=== PATIENT | male | born 1950 | race Caucasian/White ===

== ENCOUNTER 2018-01-21 12:23 | Inpatient (IN) | payer MEDICARE, OTHER ==
[2018-01-21] VITALS (13 sets, daily range): BP systolic 124–160; BP diastolic 67–89; PULSE 65–83; RESP 16–18; TEMP 97.1–97.7; O2SAT 98–100
[2018-01-21] MEDS ORDERED: SODIUM CHLOR 0.9% 1000 ML INJ 1,000 ML IV ONE (12:51)
--- NOTE | 2018-01-21 13:11 | RADRPT ---
EXAM DATE/TIME: 01/21/2018 12:54 [facility] COMPARISON: No previous studies available for comparison. INDICATIONS : Stroke Alert, left sided weakness, facial droop. RADIATION DOSE: 56.35 CTDIvol (mGy) MEDICAL HISTORY : Non-responsive. SURGICAL HISTORY : Non-responsive. ENCOUNTER: Initial ACUITY: 1 day PAIN SCALE: Non-responsive LOCATION: Bilateral cranial TECHNIQUE: Multiple contiguous axial images were obtained of the head. Using automated exposure control and adj ustment of the mA and/or kV according to patient size, radiation dose was kept as low as reasonably a chievable to obtain optimal diagnostic quality images. DICOM format image data is available electro nically for review and comparison. FINDINGS: CEREBRUM: The ventricles are normal for age. Punctate old lacunar type infarct in the right central centrum se mi-ovale No evidence of midline shift, mass lesion, hemorrhage or acute infarction. No extra-axial f luid collections are seen. POSTERIOR FOSSA: The cerebellum and brainstem are intact. The 4th ventricle is midline. The cerebellopontine angle i s unremarkable. EXTRACRANIAL: The visualized portion of the orbits is intact. SKULL: The calvaria is intact. No evidence of skull fracture. CONCLUSION: 1. Minimal chronic changes with an old infarct in the right central centrum semiovale. 2. Otherwise negative. No acute intracranial hemorrhage. 3. Results were called to Dr. Nixon in the emergency department at 1307. Jose Alberto Nolasco MD on January 21, 2018 at 13:06 Board Certified Radiologist. This report was verified electronically.
[2018-01-21] MEDS ORDERED: MISCELLANEOUS NURSING INFORMATION XX PRN (13:15)
[2018-01-21] MEDS ORDERED: ALTEPLASE BOLUS 9 MG/9 ML SYR IV ONE (13:15)
[2018-01-21] MEDS ORDERED: SODIUM CHLORIDE 0.9% 50 ML BAG IVF ONE (13:15)
[2018-01-21] MEDS ORDERED: ALTEPLASE DRIP IV ONE (13:15)
[2018-01-21 13:17] LABS: AUTOMATED NEUTROPHIL # 8.6 TH/MM3 (1.8-7.7); BASOPHIL # 0.1 TH/MM3 (0-0.2); BASOPHIL % 0.4 % (0.0-2.0); EOSINOPHIL % 0.4 % (0.0-4.0); HEMATOCRIT 43.4 % (39.0-51.0); HEMOGLOBIN 14.8 GM/DL (13.0-17.0); LYMPH % 19.9 % (9.0-44.0); LYMPHOCYTE # 2.3 TH/MM3 (1.0-4.8); MEAN CELL VOLUME 90.7 FL (80.0-100.0); MEAN CORPUSCULAR HEMOGLOBIN 30.9 PG (27.0-34.0); MEAN CORPUSCULAR HGB CONC 34.1 % (32.0-36.0); MEAN PLATELET VOLUME 9.5 FL (7.0-11.0); MONOCYTE # 0.6 TH/MM3 (0-0.9); NEUT % 74.3 % (16.0-70.0); PLATELET COUNT 209 TH/MM3 (150-450); RED BLOOD COUNT 4.78 MIL/MM3 (4.50-5.90); RED CELL DISTRIBUTION WIDTH 12.9 % (11.6-17.2); WHITE BLOOD COUNT 11.5 TH/MM3 (4.0-11.0)
[2018-01-21 13:35] LABS: TROPONIN I LESS THAN 0.02 NG/ML (0.02-0.05)
[2018-01-21 13:36] LABS: PROTHROMBIN TIME - PATIENT 10.4 SEC (9.8-11.6)
--- NOTE | 2018-01-21 13:47 | PD ---
HPI Chief Complaint: Neuro Symptoms/ Deficits Time Seen by Provider: 12:51 Travel History International Travel<30 days: No Contact w/Intl Traveler<30days: No Traveled to known affect area: No History of Present Illness HPI 67-year-old male states at 1045 he developed left-sided weakness and slurred speech. His states she called him and at 1115 she noticed his symptoms and came home and brought him here. She states that in 2016 when he was at [place] he had similar symptoms and received TPA. At that time all his tests were normal so they thought it was related to the elevation. Patient denies any other concurrent complaints at this time but history is limited from patient given his slurred speech. Quality is weak. Location is left side. He denies specific modifying factors. Quality is hard to lift. Duration is since 1045. PFSH Past Medical History Hx Anticoagulant Therapy: No Cerebrovascular Accident: Yes Past Surgical History Narrative Surgical Limited with patient slurred speech Social History Tobacco Use: No Allergies-Medications (Allergen,Severity, Reaction): Coded Allergies: No Known Allergies (Unverified , 01/21/18) Review of Systems ROS Limitations: Speech Impaired Except as stated in HPI: all other systems reviewed are Neg Physical Exam Narrative GENERAL: 67-year-old male with slurred speech SKIN: Focused skin assessment warm/dry. HEAD: Atraumatic. Normocephalic. EYES: Pupils equal and round. No scleral icterus. No injection or drainage. ENT: No nasal bleeding or discharge. Mucous membranes pink and moist. NECK: Trachea midline. CARDIOVASCULAR: Regular rate and rhythm. RESPIRATORY: No accessory muscle use. Clear to auscultation. Breath sounds equal bilaterally. GASTROINTESTINAL: Abdomen soft, non-tender, nondistended. MUSCULOSKELETAL: No obvious deformities. No clubbing. No cyanosis NEUROLOGICAL: Patient awake and alert. Slurred speech noted, no facial droop noted. Weakness noted to left leg that he is only able to raise it an inch off the bed and keep it up for about 3 seconds before it falls Data Data Last Documented VS Vital Signs Date Time Temp Pulse Resp B/P (MAP) Pulse Ox O2 Delivery O2 Flow Rate FiO2 01/21/18 15:05 83 18 143/67 (92) 98 Room Air 01/21/18 14:25 2.00 01/21/18 12:31 97.1 Orders Orders Diet Npo (01/21/18 Lunch) Activity Bed Rest (01/21/18 ) Electrocardiogram (01/21/18 ) I-Stat Profile (01/21/18 12:51) Prothrombin Time / Inr (Pt) (01/21/18 12:51) Act Partial Throm Time (Ptt) (01/21/18 12:51) Complete Blood Count With Diff (01/21/18 12:51) Fibrinogen (01/21/18 12:51) Creatine Kinase (Cpk) (01/21/18 12:51) Troponin I (01/21/18 12:51) Ua Includes Microscopic (01/21/18 12:51) Drug Screen, Random Urine (01/21/18 12:51) Type And Screen (01/21/18 12:51) Ct Brain W/O Iv Contrast(Rout) (01/21/18 ) Chest, Single Ap (01/21/18 ) Blood Glucose (01/21/18 12:51) Ecg Monitoring (01/21/18 12:51) Neuro Checks Q2HX12,Q4H (01/21/18 12:51) Nursing Bedside Swallow Assess .ONCE (01/21/18 12:51) Iv Access Insert/Monitor (01/21/18 12:51) NPO (01/21/18 12:51) Oximetry (01/21/18 12:51) Resp Oxygen Nc Stroke (01/21/18 ) Sodium Chlor 0.9% 1000 Ml Inj (Ns 1000 M (01/21/18 12:51) Cath For Specimen (01/21/18 12:51) ^ Call Pharmacy (01/21/18 13:08) Nih Stroke Scale - Nihss .ONCE (01/21/18 13:08) Urinary Catheter Insert/Apply (01/21/18 13:08) Anticoagulant Alert (01/21/18 13:08) ^ Post Infusion Restrictions (01/21/18 13:08) ^ Medication Alert (01/21/18 13:08) Vital Signs (Adult) .As directed (01/21/18 13:08) Notify Dr: Blood Pressure (01/21/18 13:08) ^ Medication Alert (01/21/18 13:08) Alteplase Bolus (Activase Bolus) (01/21/18 13:15) Alteplase Drip (Activase Drip) (01/21/18 13:15) Sodium Chloride 0.9% Inj (Ns Inj) (01/21/18 13:15) Misc Nursing Information (01/21/18 13:15) Resp Oxygen Nc Stroke (01/21/18 ) Cta Brain W Iv Contrast W 3d (01/21/18 13:11) Cta Neck W Iv Contrast W 3d (01/21/18 13:11) Mri Brain W/O Contrast (01/21/18 ) Echo 2d Comp With Doppler (01/21/18 ) Iodixanol 320 Inj (Rad Ct) (Visipaque 32 (01/21/18 15:40) Admit Order (Ed Use Only) (01/21/18 15:53) Admit To Inpatient (01/21/18 ) Nih Stroke Scale - Nihss .On admission and discharge (01/21/18 15:54) Consult Pt Eval & Treat (01/21/18 15:54) Case Management Consult (01/21/18 ) Activity Bed Rest (01/21/18 15:54) Nursing Bedside Swallow Assess .ONCE (01/21/18 15:54) Diet Npo (01/21/18 Dinner) Hemoglobin (Hgb) A1c (01/21/18 15:54) Lipid Profile (01/22/18 06:00) Resp Oxygen Nc Stroke (01/21/18 ) ^ Hold Medication (01/21/18 15:54) Consult Neurology (01/21/18 ) Sodium Chloride 0.9% Flush (Ns Flush) (01/21/18 21:00) Sodium Chloride 0.9% Flush (Ns Flush) (01/21/18 16:00) Bedside Glucose YOLA.CSUGAR (01/21/18 15:54) Dextrose 50% In John (Vial) Inj (D50w (Vi (01/21/18 16:00) Glucagon Inj (Glucagon Inj) (01/21/18 16:00) Consult Rehab Medicine (01/21/18 15:54) Flat Locker / Telemetry YOLA.Q8H (01/21/18 15:54) Consult Stroke Navigator (01/21/18 ) Inpatient Certification (01/21/18 ) Us Carotid Arteries Comp Bilat (01/21/18 ) Labs Laboratory Tests Test 01/21/18 12:50 01/21/18 13:14 White Blood Count 11.5 TH/MM3 Red Blood Count 4.78 MIL/MM3 Hemoglobin 14.8 GM/DL Bedside Hemoglobin 13.9 G/DL Hematocrit 43.4 % Bedside Hematocrit 41.0 % Mean Corpuscular Volume 90.7 FL Mean Corpuscular Hemoglobin 30.9 PG Mean Corpuscular Hemoglobin Concent 34.1 % Red Cell Distribution Width 12.9 % Platelet Count 209 TH/MM3 Mean Platelet Volume 9.5 FL Neutrophils (%) (Auto) 74.3 % Lymphocytes (%) (Auto) 19.9 % Monocytes (%) (Auto) 5.0 % Eosinophils (%) (Auto) 0.4 % Basophils (%) (Auto) 0.4 % Neutrophils # (Auto) 8.6 TH/MM3 Lymphocytes # (Auto) 2.3 TH/MM3 Monocytes # (Auto) 0.6 TH/MM3 Eosinophils # (Auto) 0.0 TH/MM3 Basophils # (Auto) 0.1 TH/MM3 CBC Comment DIFF FINAL Differential Comment Prothrombin Time 10.4 SEC Prothromb Time International Ratio 1.0 RATIO Activated Partial Thromboplast Time 23.4 SEC Fibrinogen 288 mg/dL Bedside Sodium 139 MMOL/L Bedside Potassium 3.7 MMOL/L Bedside Chloride 102 MMOL/L Bedside Blood Urea Nitrogen 23 MG/DL Bedside Creatinine 1.4 MG/DL Bedside Glucose 115 MG/DL Total Creatine Kinase 74 U/L Troponin I LESS THAN 0.02 NG/ML Urine Color LIGHT-YELLOW Urine Turbidity CLEAR Urine pH 8.0 Urine Specific [place] 1.018 Urine Protein NEG mg/dL Urine Glucose (UA) NEG mg/dL Urine Ketones NEG mg/dL Urine Occult Blood NEG Urine Nitrite NEG Urine Bilirubin NEG Urine Urobilinogen LESS THAN 2.0 MG/DL Urine Leukocyte Esterase NEG Urine RBC 2 /hpf Urine WBC 2 /hpf Urine Squamous Epithelial Cells <1 /hpf Urine Transitional Epithelial Cells <1 /hpf Urine Opiates Screen NEG Urine Barbiturates Screen NEG Urine Amphetamines Screen NEG Urine Benzodiazepines Screen NEG Urine Cocaine Screen NEG Urine Cannabinoids Screen NEG MDM Medical Screen Exam Complete: Yes Emergency Medical Condition: Yes Medical Record Reviewed: Yes (Past history confirmed) Differential Diagnosis Stroke, bleed, mass Narrative Course Stroke alert was called based on symptoms and timeline. Neurology agrees. Patient went to CT and without large bleed. Patient consented to TPA and this was ordered. He will be monitored closely. Patient had originally said that he is allergic to contrast dye but after discussion with she states he had nausea and diarrhea after MRI contrast so we will proceed with CT imaging to rule out large clot that could be intervened on. CTA brain and neck without critical stenosis. Will admit to the ICU for further care. Critical Care Narrative Aggregate critical care time was 31 minutes. Time to perform other separately billable procedures was not included in the critical care time. My time did not include minutes spent treating any other patients simultaneously or on activities that did not directly contribute to the patient's treatment. The services I provided to this patient were to treat and/or prevent clinically significant deterioration that could result in: progression of stroke, bleed I provided critical care services requiring my management, as noted below: Chart data review, documentation time, medication orders and management, vital sign assessments/reviewing monitor data, ordering and reviewing lab tests, ordering and interpreting/reviewing x-rays and diagnostic studies, care of the patient and discussion of the patient with the admitting physicians. Stroke Alert NIHSS NIH Stroke Scale Result: 4 NIHSS Time Completed: 12:50 Procedures Interpretation(s) CBC & BMP Diagram 01/21/18 12:50 Last [address] 01/21/18 0000 Signed Impressions: Service Date/Time: January 12:54 - CONCLUSION: 1. Minimal chronic changes with an old infarct in the right central centrum semiovale. 2. Otherwise negative. No acute intracranial hemorrhage. 3. Results were called to Dr. Nixon in the emergency department at 1307. Jose Alberto Nolasco MD Last [address] 01/21/18 0000 Signed Impressions: Service Date/Time: January 12:54 - CONCLUSION: 1. Minimal chronic changes with an old infarct in the right central centrum semiovale. 2. Otherwise negative. No acute intracranial hemorrhage. 3. Results were called to Dr. Nixon in the emergency department at 1307. Jose Alberto Nolasco MD Chest X-Ray 01/21/18 0000 Signed Impressions: Service Date/Time: January 13:55 - CONCLUSION: The lungs are clear. Ladarius Hope MD Physician Communication Physician Communication dr tineo agrees to stroke alert dr tineo updated and agrees to tpa dr servin agrees to admit Diagnosis Diagnosis: Primary Impression: Left-sided weakness Additional Impression: Slurred speech Admitting Physician Requests: Admit Emily Nixon MD Jan 21, 2018 13:47
[2018-01-21 13:53] LABS: BILIRUBIN, URINE NEG (NEG); BLOOD, URINE NEG (NEG); GLUCOSE,URINE NEG (NEG); KETONE, URINE NEG (NEG); NITRITE,URINE NEG (NEG); SQUAMOUS EPITHELIAL CELL URINE <1 /hpf (0-5); TRANSITIONAL EPI CELLS, URINE <1 /hpf; URINE COLOR LIGHT-YELLOW (YELLW/STRAW); URINE LEUKOCYTE ESTERASE NEG (NEG)
--- NOTE | 2018-01-21 14:14 | RADRPT ---
EXAM DATE/TIME: 01/21/2018 13:55 [facility] COMPARISON: No previous studies available for comparison. INDICATIONS : Stroke alert. MEDICAL HISTORY : None. SURGICAL HISTORY : None. ENCOUNTER: Initial ACUITY: 1 day PAIN SCORE: 0/10 LOCATION: Bilateral chest FINDINGS: A single view of the chest demonstrates the lungs to be symmetrically aerated without evidence of mas s, infiltrate or effusion. The cardiomediastinal contours are unremarkable. Osseous structures are intact. CONCLUSION: The lungs are clear. Ladarius Hope MD on January 21, 2018 at 14:12 Board Certified Radiologist. This report was verified electronically.
--- NOTE | 2018-01-21 14:42 | MB ---
cc: Coral Sweeney MD DATE: 01/21/2018 REASON FOR CONSULTATION: Stroke alert. HISTORY OF PRESENT ILLNESS: This is a pleasant 67-year-old man who at 10:45 this morning developed some left-sided weakness, some slurring of speech and some dizziness, called his about 11:15 and she subsequently brought him to the ER. His symptoms continued. He went for a CAT scan that did not show anything acute, and it was decided that we should go ahead and initiate tPA. He did receive the bolus. He is currently receiving the rest of the infusion. He has a history of stroke in the past in 2015 when he climbed [facility] and he received tPA at that time. Etiology at that point was not known. It was thought that maybe it was due to altitude. Currently, the patient's speech has improved. It is just below. His left side seems to have been improving as well. He denies any headache, chest pain or shortness of breath. PAST MEDICAL HISTORY: Non-Hodgkin's lymphoma involving the right eye for which she had treatment over 5 years ago, I believe. ALLERGIES TO MEDICINE: NONE. MEDICATION: He does take a baby aspirin at home. SOCIAL HISTORY: . There is no history of tobacco or excessive alcohol use. PHYSICAL EXAMINATION: VITAL SIGNS: His temperature is 97.1, pulse 67, respiratory rate 18, blood pressure 141/69, saturating at 98% on 2 liters nasal cannula. NECK: Supple. There are no bruits. HEART: Regular. LUNGS: Clear. NEUROLOGIC: He is awake, alert, and oriented. Speech is slightly slower. I would not say he is slurred. There is no facial asymmetry. There was, I am told earlier, left side. His pupils react. Visual dick are full. Face is symmetrical now. Motor martel, no drift, no leg lag. DTRs are symmetrical. Toes are downgoing. Certified Technician are symmetrical. He had an NIH of 4 when he came in. IMAGING STUDIES: CT head did not show anything acute. LABORATORY DATA: His white count is 11.5, neutrophil percent 74.3. Coag panel: PTT 23.4. Chemistries: BUN 23, creatinine 1.4, glucose 115. Troponin less than 0.02. Tox screen is negative. Urine unremarkable. IMPRESSION: Left-sided deficits with some dysarthria, status post tPA. PLAN: Recommend now post-tPA orders. We will get an MRI of the brain, sycuan of [place] and carotids. We did not do the CTA because of some QUESTIONABLE ALLERGY TO CONTRAST. We will go ahead and get an echo. No antiplatelets for 24 hours post-tPA and in 24 hours start him on a full dose aspirin. PT, OT, speech therapy tomorrow. Head of bed flat for 24 hours. SCDs at this point and Lovenox can be started 24 hours post-tPA. Continue current orders. Continue monitoring for any dysrhythmia. Further recommendations will be made accordingly. MD KAYLEE Bruce/KYMBERLY , 02:18 PM , 02:41 PM
[2018-01-21] MEDS ORDERED: IODIXANOL 320 MG/ML 10 ML VIAL (for Rad CT) IVCONTRAST ONE (15:40)
[2018-01-21] MEDS ORDERED: DEXTROSE 50% IN WATER 50 ML VIAL(D50) IV PUSH PRN (16:00)
[2018-01-21] MEDS ORDERED: GLUCAGON 1 MG/ML VIAL OTHER PRN (16:00)
[2018-01-21] MEDS ORDERED: SODIUM CHLORIDE 0.9% FLUSH 10 ML FLUSH IV FLUSH PRN (16:00)
--- NOTE | 2018-01-21 16:04 | RADRPT ---
EXAM DATE/TIME: 01/21/2018 15:06 [facility] COMPARISON: CT BRAIN W/O CONTRAST, January 21, 2018, 12:54. INDICATIONS : Left side weakness, dizzy, trouble speaking IV CONTRAST: 97 cc Omnipaque 350 (iohexol) IV ; Cumulative dose for multiple exams. RADIATION DOSE: 28.53 CTDIvol (mGy) ; Combined studies - Thorax/Abdomen/Pelvis MEDICAL HISTORY : Cerebrovascular disease. SURGICAL HISTORY : None. ENCOUNTER: Initial ACUITY: 1 day PAIN SCALE: 0/10 LOCATION: CTA brain TECHNIQUE: Volumetric scanning was performed using a multi-row detector CT scanner. The data was post processed with a variety of visualization algorithms including full volume maximum intensity projection, multi -planar sliding thin slab reformation, curved planar reformation, and surface rendering techniques. Using automated exposure control and adjustment of the mA and/or kV according to patient size, radiat ion dose was kept as low as reasonably achievable to obtain optimal diagnostic quality images. DICO M format image data is available electronically for review and comparison. FINDINGS: There is excellent visualization of the major intracranial arteries out to the second-order branch ve ssels. There is no evidence for aneurysm, vessel truncation or stenosis, and no evidence for vascula r malformation. No large or central vessel occlusion identified. CONCLUSION: 1. Negative examination. Ant Dempsey MD on January 21, 2018 at 15:58 Board Certified Radiologist. This report was verified electronically.
--- NOTE | 2018-01-21 16:07 | RADRPT ---
EXAM DATE/TIME: 01/21/2018 15:24 [facility] COMPARISON: No previous studies available for comparison. INDICATIONS : CVA. Bilateral weakness but mostly on left side and dizziness. MEDICAL HISTORY : Carcinoma, squamous cell. Stroke Microadenoma pituitary, Renal cell cancer SURGICAL HISTORY : Nephrectomy, left. Tonsillectomy. Hernia sx. ENCOUNTER: Initial ACUITY: 1 day PAIN SCORE: 5/10 LOCATION: Bilateral cranial TECHNIQUE: Multiplanar, multisequence MRI of the brain was performed without contrast. FINDINGS: CEREBRUM: The ventricles are normal for age. No evidence of midline shift, mass lesion, hemorrhage or acute in farction. No extraaxial fluid collections are seen. The pituitary gland and suprasellar cistern are normal in configuration. WHITE MATTER: No significant signal abnormalities are seen in the white matter. POSTERIOR FOSSA: The cerebellum and brainstem are intact. The 4th ventricle is midline. The cerebellopontine angle is unremarkable. The cerebellar tonsils are normal in position. DIFFUSION IMAGING: No focal areas of restricted diffusion are seen. No evidence of acute infarction. EXTRACRANIAL: The visualized portions of the orbits and paranasal sinuses are unremarkable. CONCLUSION: 1. No acute cortical infarct identified. Ant Dempsey MD on January 21, 2018 at 16:02 Board Certified Radiologist. This report was verified electronically.
--- NOTE | 2018-01-21 16:08 | RADRPT ---
EXAM DATE/TIME: 01/21/2018 15:06 [facility] COMPARISON: No previous studies available for comparison. INDICATIONS : Left side weakness,dizzness,dificulty speaking IV CONTRAST: 97 cc Visipaque (iodixanol) IV ; Cumulative dose for multiple exams. RADIATION DOSE: 28.53 CTDIvol (mGy) ; Combined studies MEDICAL HISTORY : Cerebrovascular disease. SURGICAL HISTORY : None. ENCOUNTER: Initial ACUITY: 1 day PAIN SCALE: 0/10 LOCATION: CTA Neck Elevated flow velocities and ICA/CCA ratios have been found to correlate with increased degrees of vessel stenosis, calculated as percentage of diameter relative to a normal segment of distal ICA/CCA. TECHNIQUE: Volumetric scanning was performed using a multirow detector CT scanner. The data was post processed with a variety of visualization algorithms including full-volume maximum intensity projection, multip lanar sliding thin-slab reformation, curved-planar reformation, and surface-rendering techniques. Us ing automated exposure control and adjustment of the mA and/or kV according to patient size, radiatio n dose was kept as low as reasonably achievable to obtain optimal diagnostic quality images. DICOM f ormat image data is available electronically for review and comparison. FINDINGS: No abnormality is identified within the lung apices. There is normal origin of vessels from the arch without evidence of proximal stenosis. The left vertebral artery is dominant. Examination of the right common carotid artery demonstrates the vessel to be widely patent. There is 20-30% stenosis with minimal calcific plaque More distally the cervical internal carotid artery is in tact. Examination of the left common carotid artery demonstrates the vessel to be widely patent. There is 2 0-30% stenosis at the origin of the left internal carotid artery. More distally the cervical internal carotid artery is intact. Percent stenosis is calculated using the diameter of the stenotic region over the diameter of the nor mal distal internal carotid artery. CONCLUSION: No evidence of hemodynamically significant lesion. There is 20-30% stenosis bilaterally Stuart Sweeney MD on January 21, 2018 at 16:00 Board Certified Radiologist. This report was verified electronically.
--- NOTE | 2018-01-21 16:20 | HHI.HP ---
HPI Service [facility] Primary Care Physician No Primary Care Physician Admission Diagnosis stroke Diagnoses: Travel History International Travel<30 Days: No Contact w/Intl Traveler <30 Da: No Traveled to Known Affected Are: No History of Present Illness really weak and dizzy and feeling sickly emotions got wacked out in shape called and she came home real clammy feeling just barely stand with holding on "emotions were going both legs were weak left leg was really weak right leg was just wak left arm was little bit weak right arm ok voice changed had smilar symptoms with previous cva had episodes of crying and laughing - pseudobublar symptoms today's emotional symptoms were simliar brain was very foggy as well this happeend around 10:45 am got home 11:15a.m. was given tpa in er after this, gabieything started clearing up on ROS, has freq urination because he drinks a lot has only one kidney About 20 days ago, patient had cataract surgery done. 2 weeks prior to that, he had stopped his aspirin. However he resumed it soon after cardiac surgery was done. 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- no residual deficits now except little bit of memory impairment microadneoma of pituitary Past Surgical History hernias x 3 left neprectomy tonsilectomy Allergies: Coded Allergies: No Known Allergies (Unverified , 01/21/18) Family History mother- lupus, fibromyalgias Social History quit smoking in 1970s no etoh abuse- quit 5 yrs ago, mostly social drinker then no drugs Physical Exam Vital Signs Vital Signs Date Time Temp Pulse Resp B/P (MAP) Pulse Ox O2 Delivery O2 Flow Rate FiO2 01/21/18 15:05 83 18 143/67 (92) 98 Room Air 01/21/18 14:25 79 18 139/78 (98) 99 Nasal Cannula 2.00 4/5/18 14:16 98 Nasal Cannula 2.00 01/21/18 13:51 67 18 141/69 (93) 98 Nasal Cannula 2.00 01/21/18 13:44 98 Nasal Cannula 2.00 01/21/18 13:44 18 98 Nasal Cannula 2.00 01/21/18 13:25 70 18 140/71 (94) 98 Nasal Cannula 2.00 01/21/18 12:57 65 18 148/75 (99) 100 Room Air 01/21/18 12:55 93 18 98 Room Air 01/21/18 12:45 66 18 160/89 (112) 100 Room Air 01/21/18 12:31 97.1 67 16 159/72 (101) 100 Physical Exam GENERAL: This is a well-nourished, well-developed patient, in no apparent distress. SKIN: No rashes, ecchymoses or lesions. Cool and dry. HEAD: Atraumatic. Normocephalic. No temporal or scalp tenderness. EYES: Pupils equal round and reactive. Extraocular motions intact. No scleral icterus. No injection or drainage. ENT: Nose without bleeding, purulent drainage or septal hematoma. Throat without erythema, tonsillar hypertrophy or exudate. Uvula midline. Airway patent. NECK: Trachea midline. No JVD or lymphadenopathy. Supple, nontender, no meningeal signs. CARDIOVASCULAR: Regular rate and rhythm without murmurs, gallops, or rubs. RESPIRATORY: Clear to auscultation. Breath sounds equal bilaterally. No wheezes , rales, or rhonchi. GASTROINTESTINAL: Abdomen soft, non-tender, nondistended. No hepato-splenomegaly , or palpable masses. No guarding. MUSCULOSKELETAL: Extremities without clubbing, cyanosis, or edema. No joint tenderness, effusion, or edema noted. No calf tenderness. Negative Homans sign bilaterally. NEUROLOGICAL: Awake and alert. Cranial nerves II through XII intact. Motor and sensory grossly within normal limits. Five out of 5 muscle strength in all muscle groups. Normal speech. Laboratory Laboratory Tests Test 01/21/18 12:50 01/21/18 13:14 White Blood Count 11.5 Red Blood Count 4.78 Hemoglobin 14.8 Bedside Hemoglobin 13.9 Hematocrit 43.4 Bedside Hematocrit 41.0 Mean Corpuscular Volume 90.7 Mean Corpuscular Hemoglobin 30.9 Mean Corpuscular Hemoglobin Concent 34.1 Red Cell Distribution Width 12.9 Platelet Count 209 Mean Platelet Volume 9.5 Neutrophils (%) (Auto) 74.3 Lymphocytes (%) (Auto) 19.9 Monocytes (%) (Auto) 5.0 Eosinophils (%) (Auto) 0.4 Basophils (%) (Auto) 0.4 Neutrophils # (Auto) 8.6 Lymphocytes # (Auto) 2.3 Monocytes # (Auto) 0.6 Eosinophils # (Auto) 0.0 Basophils # (Auto) 0.1 CBC Comment DIFF FINAL Differential Comment Prothrombin Time 10.4 Prothromb Time International Ratio 1.0 Activated Partial Thromboplast Time 23.4 Fibrinogen 288 Bedside Sodium 139 Bedside Potassium 3.7 Bedside Chloride 102 Bedside Blood Urea Nitrogen 23 Bedside Creatinine 1.4 Bedside Glucose 115 Total Creatine Kinase 74 Troponin I LESS THAN 0.02 Urine Color LIGHT-YELLOW Urine Turbidity CLEAR Urine pH 8.0 Urine Specific Dunbar 1.018 Urine Protein NEG Urine Glucose (UA) NEG Urine Ketones NEG Urine Occult Blood NEG Urine Nitrite NEG Urine Bilirubin NEG Urine Urobilinogen LESS THAN 2.0 Urine Leukocyte Esterase NEG Urine RBC 2 Urine WBC 2 Urine Squamous Epithelial Cells <1 Urine Transitional Epithelial Cells <1 Urine Opiates Screen NEG Urine Barbiturates Screen NEG Urine Amphetamines Screen NEG Urine Benzodiazepines Screen NEG Urine Cocaine Screen NEG Urine Cannabinoids Screen NEG Result Diagram: 01/21/18 1250 Imaging Last 48 hours Impressions Neck CTA 01/21/18 1311 Signed Impressions: Service Date/Time: January 15:06 - CONCLUSION: No evidence of hemodynamically significant lesion. There is 20-30%% stenosis bilaterally Stuart Sweeney MD Head CTA 01/21/18 1311 Signed Impressions: Service Date/Time: January 15:06 - CONCLUSION: 1. Negative examination. Ant Dempsey MD Head CT 01/21/18 0000 Signed Impressions: Service Date/Time: January 12:54 - CONCLUSION: 1. Minimal chronic changes with an old infarct in the right central centrum semiovale. 2. Otherwise negative. No acute intracranial hemorrhage. 3. Results were called to Dr. Nixon in the emergency department at 1307. Jose Alberto Nolasco MD Chest X-Ray 01/21/18 Signed Impressions: Service Date/Time: January 13:55 - CONCLUSION: The lungs are clear. Ladarius Hope MD Brain MRI 01/21/18 Signed Impressions: Service Date/Time: January 15:24 - CONCLUSION: 1. No acute cortical infarct identified. Ant Dempsey MD Caprini VTE Risk Assessment Caprini VTE Risk Assessment: Mod/High Risk (score >= 2) Caprini Risk Assessment Model Point Value = 1 Point Value = 2 Point Value = 3 Point Value = 5 Age 41-60 Minor surgery BMI > 25 kg/m2 Swollen legs Varicose veins or History of unexplained or recurrent spontaneous Oral contraceptives or hormone replacement Sepsis (< 1 month) Serious lung disease, including pneumonia (< 1 month) Abnormal pulmonary function Acute myocardial infarction Congestive heart failure (< 1 month) History of inflammatory bowel disease Medical patient at bed rest Age 61-74 Arthroscopic surgery Major open surgery (> 45 min) Laparoscopic surgery (> 45 min) Malignancy Confined to bed (> 72 hours) Immobilizing plaster cast Central venous access Age >= 75 History of VTE Family history of VTE Factor V Leiden Prothrombin [id number] Lupus anticoagulant Anticardiolipin antibodies Elevated serum homocysteine Heparin-induced thrombocytopenia Other congenital or acquired thrombophilia Stroke (< 1 month) Elective arthroplasty Hip, pelvis, or leg fracture Acute spinal cord injury (< 1 month) Prophylaxis Regimen Total Risk Factor Score Risk Level Prophylaxis Regimen 0-1 Low Early ambulation 2 Moderate Order ONE of the following: *Sequential Compression Device (SCD) *Heparin 5000 units SQ BID 3-4 Higher Order ONE of the following medications: *Heparin 5000 units SQ TID *Enoxaparin/Lovenox 40 mg SQ daily (WT < 150 kg, CrCl > 30 mL/min) *Enoxaparin/Lovenox 30 mg SQ daily (WT < 150 kg, CrCl > 10-29 mL/min) *Enoxaparin/Lovenox 30 mg SQ BID (WT < 150 kg, CrCl > 30 mL/min) AND/OR *Sequential Compression Device (SCD) 5 or more Highest Order ONE of the following medications: *Heparin 5000 units SQ TID (Preferred with Epidurals) *Enoxaparin/Lovenox 40 mg SQ daily (WT < 150 kg, CrCl > 30 mL/min) *Enoxaparin/Lovenox 30 mg SQ daily (WT < 150 kg, CrCl > 10-29 mL/min) *Enoxaparin/Lovenox 30 mg SQ BID (WT < 150 kg, CrCl > 30 mL/min) AND *Sequential Compression Device (SCD) Assessment and Plan Assessment and Plan Impression: Acute CVA. Status post TPA in ER. Symptoms now resolved post TPA. Prior history of CVA with TPA treatment in April 2016. No residual deficits now except a little bit of memory impairment. Hypertension History of renal cell carcinoma of the left kidney about 5 years ago. Status post left nephrectomy. History of MALT lymphoma behind the right eye about 5 years ago. Status post radiation treatment. 6% involved in the bone marrow. Underwent rituximab therapy and is on surveillance currently. Obstructive sleep apnea on CPAP at night Microadenoma of the pituitary Plan: Follow TPA protocol. Admit patient to ICU. Monitor blood pressures. Anticoagulation to be decided by neurologist after further workup. Patient and family reports that he has had Holter monitoring done previously for 30 days and there was no evidence of A. fib. He is currently only on aspirin. Neck CT/brain MRI results reviewed personally. No evidence of significant stenosis or infarct. Repeat head CT in a.m. post TPA treatment DVT prophylaxis with SCD. GI prophylaxis on pantoprazole. Discussed Condition With Patient, Physician Certification 2 Midnight Certification Type: Admission for Inpatient Services Order for Inpatient Services The services are ordered in accordance with Medicare regulations or non- Medicare payer requirements, as applicable. In the case of services not specified as inpatient-only, they are appropriately provided as inpatient services in accordance with the 2-midnight benchmark. Estimated LOS (days): 3 days is the estimated time the patient will need to remain in the hospital, assuming treatment plan goals are met and no additional complications. Post-Hospital Plan: Not yet determined Tee Barrios MD Jan 21, 2018 16:20
[2018-01-21] MEDS ORDERED: LIPI80TA PO (16:44)
[2018-01-21] MEDS ORDERED: HYDR25TA5 PO (16:44)
[2018-01-21] MEDS ORDERED: [UNRECOGNIZED DRUG - CODE] (16:44)
[2018-01-21] MEDS ORDERED: METO25TA3 PO (16:44)
[2018-01-21] MEDS ORDERED: PROT40TA PO (16:44)
[2018-01-21] MEDS ORDERED: FINA5TAB2 PO (16:44)
[2018-01-21] MEDS ORDERED: ASPI-516 CHEW (16:44)
[2018-01-21 18:04] LABS: HEMOGLOBIN A1C 5.4 % (4.3-6.0)
[2018-01-21] MEDS: SODIUM CHLORIDE 0.9% FLUSH 10 ML FLUSH IV FLUSH SCH (20:01)
--- NOTE | 2018-01-21 20:16 | EKG ---
Date Performed: 01/21/2018 Time Performed: 14:17:35 PTAGE: 67 years EKG: Sinus rhythm NORMAL ECG NO PREVIOUS TRACING DOCTOR: Misbah Alaniz Interpretating Date/Time 01/21/2018 20:14:06
[2018-01-22] VITALS (10 sets, daily range): BP systolic 116–147; BP diastolic 68–82; PULSE 66–92; RESP 16–20; TEMP 97.5–98.3; O2SAT 92–97
--- NOTE | 2018-01-22 08:23 | HHI.PR ---
Subjective Remarks Follow up CVA. Patient states that he feels much better today. He states that actually he feels "sharper" then he did before the stroke. He states that he has had residual memory deficits from stroke in 2016, but feels that some of his mental acuity has returned following the stroke. Objective Vitals Vital Signs Date Time Temp Pulse Resp B/P (MAP) Pulse Ox O2 Delivery O2 Flow Rate FiO2 01/22/18 06:00 66 01/22/18 04:18 92 21 01/22/18 04:00 98.2 76 16 122/68 (86) 94 01/22/18 04:00 78 01/22/18 02:00 78 01/22/18 00:00 78 01/22/18 00:00 98.2 76 16 118/72 (87) 94 01/21/18 22:00 72 01/21/18 20:00 72 01/21/18 20:00 97.7 72 16 124/76 (92) 99 01/21/18 19:00 Room Air 01/21/18 18:00 72 01/21/18 16:30 81 18 138/68 (91) 98 Room Air 01/21/18 15:05 83 18 143/67 (92) 98 Room Air 01/21/18 14:25 79 18 139/78 (98) 99 Nasal Cannula 2.00 01/21/18 14:16 98 Nasal Cannula 2.00 01/21/18 13:51 67 18 141/69 (93) 98 Nasal Cannula 2.00 01/21/18 13:44 98 Nasal Cannula 2.00 01/21/18 13:44 18 98 Nasal Cannula 2.00 01/21/18 13:25 70 18 140/71 (94) 98 Nasal Cannula 2.00 01/21/18 12:57 65 18 148/75 (99) 100 Room Air 01/21/18 12:55 93 18 98 Room Air 01/21/18 12:45 66 18 160/89 (112) 100 Room Air 01/21/18 12:31 97.1 67 16 159/72 (101) 100 I/O 01/21/18 01/21/18 01/21/18 01/22/18 01/22/18 01/22/18 07:00 15:00 23:00 07:00 15:00 23:00 Intake Total 50 ml Output Total 0 ml 775 ml Balance 0 ml -725 ml Intake Oral 50 ml Output Urine Total 0 ml 775 ml Result Diagram: 01/21/18 1250 Imaging Last Impressions Neck CTA 01/21/18 1311 Signed Impressions: Service Date/Time: January 15:06 - CONCLUSION: No evidence of hemodynamically significant lesion. There is 20-30%% stenosis bilaterally Stuart Sweeney MD Head CTA 01/21/18 1311 Signed Impressions: Service Date/Time: January 15:06 - CONCLUSION: 1. Negative examination. Ant Dempsey MD Head CT 01/21/18 0000 Signed Impressions: Service Date/Time: January 12:54 - CONCLUSION: 1. Minimal chronic changes with an old infarct in the right central centrum semiovale. 2. Otherwise negative. No acute intracranial hemorrhage. 3. Results were called to Dr. Nixon in the emergency department at 1307. Jose Alberto Nolasco MD Chest X-Ray 01/21/18 0000 Signed Impressions: Service Date/Time: January 13:55 - CONCLUSION: The lungs are clear. Ladarius Hope MD Brain MRI 01/21/18 0000 Signed Impressions: Service Date/Time: January 15:24 - CONCLUSION: 1. No acute cortical infarct identified. Ant Dempsey MD Objective Remarks General: No acute distress. Sitting up in a chair. Heart: Regular rate and rhythm. No murmur. Lungs: Clear to auscultation bilaterally. No wheezes, rales, or rhonchi. Breathing is nonlabored. Abdomen: Soft, nontender, nondistended. Extremities: No lower extremity edema. SCDs. Psych: Alert and oriented. Procedures None Urinary Catheter: No Vascular Central Line Catheter: No A/P Assessment and Plan 1. Acute CVA: Status post administration of TPA. Symptoms resolved. Appreciate neurology recommendations. MRI is negative. Repeat CT ordered for this afternoon, 24 hours post TPA administration. PT/OT/ST eval's. Anticoagulation per neurology. Patient states that he does not want to be on anticoagulation, but would take an aspirin a day. 2. Hypertension: Blood pressure is well controlled. 3. GI prophylaxis: Protonix. 4. DVT prophylaxis: SCDs. Discharge Planning When cleared by neurology Michele Lam MD Jan 22, 2018 08:23
[2018-01-22] MEDS ORDERED: PANTOPRAZOLE SOD 40 MG DELAYED RELEASE TAB PO SCH (09:00)
[2018-01-22] MEDS ORDERED: FINASTERIDE 5 MG TAB PO SCH (09:00)
[2018-01-22] MEDS: SODIUM CHLORIDE 0.9% FLUSH 10 ML FLUSH IV FLUSH SCH (09:03)
--- NOTE | 2018-01-22 14:11 | HHI.PR ---
Subjective Remarks feels more clear in the head no new issues. Objective Vital Signs Date Time Temp Pulse Resp B/P (MAP) Pulse Ox O2 Delivery O2 Flow Rate FiO2 01/22/18 12:00 97.5 92 18 136/75 (95) 96 01/22/18 12:00 92 01/22/18 10:00 83 01/22/18 08:00 98.3 83 16 116/75 (89) 95 01/22/18 08:00 96 Room Air 01/22/18 08:00 83 01/22/18 06:00 66 01/22/18 04:18 92 21 01/22/18 04:00 98.2 76 16 122/68 (86) 94 01/22/18 04:00 78 01/22/18 02:00 78 01/22/18 00:00 78 01/22/18 00:00 98.2 76 16 118/72 (87) 94 01/21/18 22:00 72 01/21/18 20:00 72 01/21/18 20:00 97.7 72 16 124/76 (92) 99 01/21/18 19:00 Room Air 01/21/18 18:00 72 01/21/18 16:30 81 18 138/68 (91) 98 Room Air 01/21/18 15:05 83 18 143/67 (92) 98 Room Air 01/21/18 14:25 79 18 139/78 (98) 99 Nasal Cannula 2.00 01/21/18 14:16 98 Nasal Cannula 2.00 I/O 01/21/18 01/21/18 01/21/18 01/22/18 01/22/18 01/22/18 07:00 15:00 23:00 07:00 15:00 23:00 Intake Total 50 ml 350 ml Output Total 0 ml 775 ml Balance 0 ml -725 ml 350 ml Intake Oral 50 ml IV Total 350 ml Output Urine Total 0 ml 775 ml Result Diagram: 01/21/18 1250 Imaging mri-neg echo-no report-if not done do as outpt. cta cow and ca neg pending f/u ct brain now -if neg start 325mg asa qd Assessment and Plan Assessment and Plan s/p stroke-tpa 325mg asa once ct repeat done and no bleed lipids echo ok to dc today per neuro f/u office w/me in 2 weeks routine and pcp. Coral Sweeney MD Jan 22, 2018 14:11
--- NOTE | 2018-01-22 14:47 | RADRPT ---
EXAM DATE/TIME: 01/22/2018 14:26 [facility] COMPARISON: MRI BRAIN W/O CONTRAST, January 21, 2018, 15:24. CT BRAIN W/O CONTRAST, January 21, 2018, 12:54. INDICATIONS : Follow up post TPA. RADIATION DOSE: 38.32 CTDIvol (mGy) MEDICAL HISTORY : Cerebrovascular disease. Left renal cell cancer. SURGICAL HISTORY : Nephrectomy, left. ENCOUNTER: Subsequent ACUITY: 1 day PAIN SCALE: 0/10 LOCATION: cranial TECHNIQUE: Multiple contiguous axial images were obtained of the head. Using automated exposure control and adj ustment of the mA and/or kV according to patient size, radiation dose was kept as low as reasonably a chievable to obtain optimal diagnostic quality images. DICOM format image data is available electro nically for review and comparison. FINDINGS: CEREBRUM: The ventricles are normal for age. No evidence of midline shift, mass lesion, hemorrhage or acute in farction. Lacunar infarct in the right abraham radiata, stable. No extra-axial fluid collections are seen. POSTERIOR FOSSA: The cerebellum and brainstem are intact. The 4th ventricle is midline. The cerebellopontine angle i s unremarkable. EXTRACRANIAL: The visualized portion of the orbits is intact. SKULL: The calvaria is intact. No evidence of skull fracture. CONCLUSION: 1. No evidence of acute hemorrhage. 2. No evidence of mass effect. Ladarius Hope MD on January 22, 2018 at 14:43 Board Certified Radiologist. This report was verified electronically.
[2018-01-22] MEDS ORDERED: ASPI-183 PO (15:23)
--- NOTE | 2018-01-22 15:23 | HHI.DCPOC ---
Discharge Care Plan Diagnosis: (1) CVA (cerebral vascular accident) (2) Hypertension Goals to Promote Your Health * To prevent worsening of your condition and complications * To maintain your health at the optimal level Directions to Meet Your Goals Take your medications as prescribed Follow your dietary instruction Follow activity as directed Keep your appointments as scheduled Take your immunizations and boosters as scheduled If your symptoms worsen call your PCP, if no PCP go to Urgent Care Center or Emergency Room Smoking is Dangerous to Your Health. Avoid second hand smoke Call the 24-hour hour crisis hotline for domestic abuse at Michele Lam MD Jan 22, 2018 15:23
--- NOTE | 2018-01-22 16:57 | ECHRPT ---
Indication: CVA/TIA CONCLUSIONS Normal left ventricular size. Moderate concentric left ventricular hypertrophy. The left ventricular systolic function is low normal with an estimated ejection fraction in the rang e of 50- 55%. The left atrial size is mildly dilated. The right atrial size is mildly dilated. There is trace tricuspid valve regurgitation. A prominent epicardial fat pad is present. BP: / HR: Rhythm: Sinus MEASUREMENTS (Male / Female) Normal Values Technical Quality:Fair 2D ECHO LV Diastolic Diameter PLAX 4.0 cm 4.2 - 5.9 / 3.9 - 5.3 cm LV Systolic Diameter PLAX 3.1 cm IVS Diastolic Thickness 1.4 cm 0.6 - 1.0 / 0.6 - 0.9 cm LVPW Diastolic Thickness 1.4 cm 0.6 - 1.0 / 0.6 - 0.9 cm LV Relative Wall Thickness 0.7 RV Internal Dim ED PLAX 2.2 cm LVOT Diameter 2.1 cm Aortic Root Diameter 3.0 cm LA Systolic Diameter LX 3.0 cm 3.0 - 4.0 / 2.7 - 3.8 cm M-MODE AV Cusp Separation MM 2.1 cm DOPPLER AV Peak Velocity 125.0 cm/s AV Peak Gradient 6.3 mmHg AV Mean Gradient 4.0 mmHg AV Velocity Time Integral 22.8 cm LVOT Peak Velocity 100.0 cm/s LVOT Peak Gradient 4.0 mmHg LVOT Velocity Time Integral 18.4 cm AV Area Cont Eq vti 2.8 cm AV Area Cont Eq pk 2.8 cm Mitral E Point Velocity 46.9 cm/s Mitral A Point Velocity 59.2 cm/s Mitral E to A Ratio 0.8 LV E' Lateral Velocity 10.8 cm/s Mitral E to LV E' Lateral Ratio 4.3 LV E' Septal Velocity 8.2 cm/s Mitral E to LV E' Septal Ratio 5.7 PV Peak Velocity 94.7 cm/s PV Peak Gradient 3.6 mmHg FINDINGS LEFT VENTRICLE Normal left ventricular size. Moderate concentric left ventricular hypertrophy. The left ventricular systolic function is low normal with an estimated ejection fraction in the rang e of 50- 55%. RIGHT VENTRICLE Normal right ventricular size and systolic function. LEFT ATRIUM The left atrial size is mildly dilated. RIGHT ATRIUM The right atrial size is mildly dilated. ATRIAL SEPTUM No atrial level shunt is demonstrated by color flow Doppler interrogation. AORTA The aortic root and proximal ascending aorta are not well visualized. MITRAL VALVE Structurally normal mitral valve. No mitral valve stenosis or regurgitation. AORTIC VALVE Trileaflet aortic valve. No aortic valve stenosis or regurgitation. TRICUSPID VALVE There is trace tricuspid valve regurgitation. PULMONARY VALVE No pulmonary valve regurgitation or stenosis. VESSELS The inferior vena cava was not well visualized. PERICARDIUM A prominent epicardial fat pad is present. Darrian Mcnair MD, FACC (Electronically Signed) Final Date:22 January 2018 16:56
[2018-01-22] MEDS ORDERED: ATORVASTATIN 80 MG TAB PO SCH (21:00)
[2018-01-23] MEDS ORDERED: ASPIRIN 325 MG TAB PO SCH (09:00)
== END 2018-01-22 16:01 | disposition home or self-care (01) | DRG 62 ==
LOC: NEPE 12:23 → NEDA 15:55 → N03A 17:05
PROVIDERS: ADMIT Family Medicine; ATTEND Family Medicine
DX: I63.9 Cerebral infarction, unspecified (principal); G81.94 Hemiplegia, unspecified affecting left nondominant side; R47.1 Dysarthria and anarthria; R29.704 NIHSS score 4; I10 Essential (primary) hypertension; G47.33 Obstructive sleep apnea (adult) (pediatric); Z86.73 Personal history of transient ischemic attack (TIA), and cerebral infarction without residual deficits; Z90.5 Acquired absence of kidney; Z85.72 Personal history of non-Hodgkin lymphomas; Z85.528 Personal history of other malignant neoplasm of kidney; Z92.3 Personal history of irradiation; Z87.891 Personal history of nicotine dependence
CPT/HCPCS: 70450; 70496; 70498; 70551; 71045; 80048; 80307; 81001; 82550; 82948; 83036; 84484; 85025; 85384; 85610; 85730; 86850; 86900; 86901; 87641; 93005; 93306; 96365; 96366; 96375; G8987-GO; G8988-GO; G8989-GO; J2997; J7030; P9612; Q9967